=== PATIENT | male | born 1940 | race Caucasian/White ===

== ENCOUNTER → 2016-05-17 | Outpatient (CLI) | payer MEDICARE, BC ==
[~2016-05-17] MED LIST: ALPHAGAN P 5 ML5 M1 OU; AZOPT 10 ML10 ML OU; BACTRIM DS 8001 TA1 PO; CARBIDOPA/LEVOD1 TE1 PO; CINNAMON500 MG PO; DIABETA 5MG5 MG/TAB PO; DIABETA5 MG PO; DUO-KAPS1 CAP PO; EFFEXOR XR75 M2 PO; FISH OIL500 MG PO; LEVITRA; LEVOTHROID0.125 MG PO; LEVOTHYROXIN0.137 MG PO; MEN UNDER 50 M1 EACH PO; METFORMIN1000 MG PO; PRAVACHOL 40MG40 MG PO; ST. JOSEPH81 M2 PO; TRULICITY1.5 MG/0.5 SC; XALATAN EYE DROPS OU; ZOCOR10 MG PO; anti depressant
== END ==
LOC: LAB 19:20
DX: E11.9 Type 2 diabetes mellitus without complications (principal)

== ENCOUNTER 2016-05-18 08:56 | Emergency (ER) | payer MEDICARE, BC ==
[~2016-05-18 08:56] MED LIST changes: -ALPHAGAN P 5 ML5 M1 OU; -CARBIDOPA/LEVOD1 TE1 PO; -DIABETA 5MG5 MG/TAB PO; -EFFEXOR XR75 M2 PO; -LEVOTHYROXIN0.137 MG PO; -MEN UNDER 50 M1 EACH PO; -PRAVACHOL 40MG40 MG PO; -TRULICITY1.5 MG/0.5 SC
[2016-05-18] MEDS ORDERED: MEN UNDER 50 M1 EACH PO (09:09)
[2016-05-18] MEDS ORDERED: EFFEXOR XR75 M2 PO (09:09)
[2016-05-18] MEDS ORDERED: PRAVACHOL 40MG40 MG PO (09:10)
[2016-05-18] MEDS ORDERED: ALPHAGAN P 5 ML5 M1 OU (09:11)
[2016-05-18] MEDS ORDERED: DIABETA 5MG5 MG/TAB PO (09:12)
[2016-05-18] MEDS ORDERED: LEVOTHYROXIN0.137 MG PO (09:13)
[2016-05-18] MEDS ORDERED: TRULICITY1.5 MG/0.5 SC (09:13)
[2016-05-18] MEDS ORDERED: CARBIDOPA/LEVOD1 TE1 PO (09:14)
== END 2016-05-18 09:58 | disposition home or self-care (01) ==
LOC: ED 08:56
DX: D72.829 Elevated white blood cell count, unspecified (principal); R73.9 Hyperglycemia, unspecified

== ENCOUNTER 2016-05-27 12:56 | Outpatient (RCR) | payer MEDICARE, BC ==
[2016-05-18 09:56] VITALS: BP 137/83
[~2016-05-27 12:56] MED LIST changes: +ALPHAGAN P 5 ML5 M1 OU; +CARBIDOPA/LEVOD1 TE1 PO; +DIABETA 5MG5 MG/TAB PO; +EFFEXOR XR75 M2 PO; +LEVOTHYROXIN0.137 MG PO; +MEN UNDER 50 M1 EACH PO; +PRAVACHOL 40MG40 MG PO; +TRULICITY1.5 MG/0.5 SC
== END 2016-06-21 08:32 | disposition home or self-care (01) ==
LOC: PT 12:56
DX: S46.011D Strain of muscle(s) and tendon(s) of the rotator cuff of right shoulder, subsequent encounter (principal); W18.09XD Striking against other object with subsequent fall, subsequent encounter

== ENCOUNTER 2018-02-28 09:03 | Emergency (ER) | payer MEDICARE, BC ==
[~2018-02-28] VITALS: Ht 175.3 cm; Wt 100.0 kg
[2018-02-28 10:21] VITALS: BP 131/86
== END 2018-02-28 10:21 | disposition home or self-care (01) ==
LOC: ED 09:03
DX: S40.012A Contusion of left shoulder, initial encounter (principal); W01.198A Fall on same level from slipping, tripping and stumbling with subsequent striking against other object, initial encounter; Y93.K9 Activity, other involving animal care; Y92.008 Other place in unspecified non-institutional (private) residence as the place of occurrence of the external cause; Z79.899 Other long term (current) drug therapy; Z79.84 Long term (current) use of oral hypoglycemic drugs; E11.9 Type 2 diabetes mellitus without complications; G20 Parkinson's disease; E78.5 Hyperlipidemia, unspecified

== ENCOUNTER 2021-01-01 15:27 | Emergency (ER) | payer MEDICARE, BC ==
[~2021-01-01 15:27] MED LIST changes: +MECLIZINE PO
[2021-01-01 15:48] LABS: BASO # 0.05 K/mm3 (0.02-0.10); EOS # 0.14 K/mm3 (0.04-0.40); EOS % 1.5 % (0.0-4.0); HEMATOCRIT 47.3 % (42.0-52.0); HEMOGLOBIN 15.1 g/dL (13.5-18.0); LYMPH# 2.09 K/mm3 (1.50-4.00); MEAN CELL VOLUME 87 fl (78-100); MEAN CORPUSCULAR HEMOGLOBIN 28 pg (27-31); MEAN CORPUSCULAR HGB CONC 32 g/dL (33-37); MEAN PLATELET VOLUME 9.5 fl (7.4-10.4); MONO # 0.89 K/mm3 (0.20-0.80); NEU # 5.98 K/mm3 (1.40-6.50); PLATELET COUNT 203 K/mm3 (130-400); RED BLOOD COUNT 5.42 M/mm3 (4.20-5.60); RED CELL DISTRIBUTION WIDTH 12.8 % (11.5-14.5); WHITE BLOOD COUNT 9.2 K/mm3 (4.8-10.8)
[2021-01-01 16:03] LABS: ALBUMIN 4.1 g/dL (3.4-4.8); SODIUM 140 mmol/L (136-145)
[2021-01-01 16:04] LABS: CALCIUM 10.4 mg/dL (8.3-10.5)
[2021-01-01 16:05] LABS: GLUCOSE 123 mg/dL (75-110)
[2021-01-01 16:06] LABS: TOTAL PROTEIN 7.2 g/dL (6.2-8.1)
[2021-01-01 16:07] LABS: CARBON DIOXIDE 27 mmol/L (23-31); TOTAL BILIRUBIN 0.3 mg/dL (0.2-1.2)
[2021-01-01 16:11] LABS: AST-SGOT 14 U/L (5-34)
[2021-01-01 16:12] LABS: ALT/SGPT 7 U/L (0-55); LIPASE 291 U/L (8-78)
[2021-01-01 16:35] LABS: TROPONIN-I < 0.03 ng/mL (<0.030)
[2021-01-01 17:04] LABS: PARTIAL THROMBOPLASTIN TIME 22.2 SECONDS (21.0-32.0); PROTHROMBIN TIME 10.1 SECONDS (9.0-12.0)
[2021-01-01 20:01] VITALS: BP 153/91
== END 2021-01-01 20:01 | disposition home or self-care (01) ==
LOC: ED 15:27
PROVIDERS: Nurse Practitioner
DX: R07.9 Chest pain, unspecified (principal); R74.8 Abnormal levels of other serum enzymes; G20 Parkinson's disease; E11.9 Type 2 diabetes mellitus without complications; E07.9 Disorder of thyroid, unspecified; Z20.822 Contact with and (suspected) exposure to COVID-19; Z79.84 Long term (current) use of oral hypoglycemic drugs; Z79.890 Hormone replacement therapy; Z79.899 Other long term (current) drug therapy

== ENCOUNTER → 2021-10-05 | Outpatient (CLI) | payer MEDICARE, BC | LOC: LAB 08:29 | DX: Z20.822 Contact with and (suspected) exposure to COVID-19 (principal) ==

== ENCOUNTER → 2022-04-20 | Outpatient (CLI) | payer MEDICARE, BC ==
[2022-04-20 11:12] LABS: BASO # 0.03 K/mm3 (0.02-0.10); EOS # 0.32 K/mm3 (0.04-0.40); EOS % 3.2 % (0.0-4.0); HEMATOCRIT 45.2 % (42.0-52.0); HEMOGLOBIN 14.3 g/dL (13.5-18.0); LYMPH# 2.14 K/mm3 (1.50-4.00); MEAN CELL VOLUME 89 fl (78-100); MEAN CORPUSCULAR HEMOGLOBIN 28 pg (27-31); MEAN CORPUSCULAR HGB CONC 32 g/dL (33-37); MEAN PLATELET VOLUME 9.7 fl (7.4-10.4); MONO # 1.01 K/mm3 (0.20-0.80); NEU # 6.34 K/mm3 (1.40-6.50); PLATELET COUNT 212 K/mm3 (130-400); RED CELL DISTRIBUTION WIDTH 14.4 % (11.5-14.5); WHITE BLOOD COUNT 9.9 K/mm3 (4.8-10.8)
[2022-04-20 11:21] LABS: ALBUMIN 4.1 g/dL (3.4-4.8); POTASSIUM 4.5 mmol/L (3.5-5.1)
[2022-04-20 11:24] LABS: TOTAL PROTEIN 6.6 g/dL (6.2-8.1)
[2022-04-20 11:25] LABS: TOTAL BILIRUBIN 0.4 mg/dL (0.2-1.2)
== END ==
LOC: LAB 10:34
PROVIDERS: Physician Assistant
DX: R05.9 Cough, unspecified (principal); R52 Pain, unspecified; Z20.822 Contact with and (suspected) exposure to COVID-19

== ENCOUNTER 2023-01-08 14:17 | Outpatient (RCR) | payer MEDICARE, BC ==
[~2023-01-08 14:17] MED LIST changes: +DEPO-TESTOS200 MG/M1 IM; +FLOMAX0.4 MG PO; +GALANTAMINE HBR8 MG PO; +MEMANTINE HCL10 MG PO; +METOPROLOL SUCC25 M1 PO; +PRAVASTATIN SOD10 MG PO; +PRILOSEC 20MG20 MG; +PROAIR HFA0.09 MG/AC IH; +VENLAFAXINE H37.5 M4 PO
== END 2023-02-06 | disposition home or self-care (01) ==
LOC: PT
DX: R27.0 Ataxia, unspecified (principal)

== ENCOUNTER 2023-02-12 08:00 | Outpatient (RCR) | payer MEDICARE, BC | END 2023-03-09 | disposition home or self-care (01) | LOC: PT | DX: R27.0 Ataxia, unspecified (principal) ==

== ENCOUNTER 2023-03-11 08:00 | Outpatient (RCR) | payer MEDICARE, BC | END 2023-04-09 | disposition home or self-care (01) | LOC: PT | DX: R27.0 Ataxia, unspecified (principal) ==

== ENCOUNTER 2023-04-10 08:00 | Outpatient (RCR) | payer MEDICARE, BC | END 2023-05-08 13:41 | disposition home or self-care (01) | LOC: PT 08:00 | DX: R27.0 Ataxia, unspecified (principal) ==

== ENCOUNTER 2023-06-21 12:12 | Emergency (ER) | payer MEDICARE, BC ==
[~2023-06-21] VITALS: Ht 177.8 cm; Wt 79.9 kg
[2023-06-21] MEDS ORDERED: PROTONIX20 M1 PO (12:22)
[2023-06-21] MEDS ORDERED: CARBIDOPA/LEVOD1 TE1 PO (12:26)
[2023-06-21 12:46] LABS: BASO # 0.02 K/mm3 (0.02-0.10); EOS # 0.11 K/mm3 (0.04-0.40); EOS % 1.1 % (0.0-4.0); HEMATOCRIT 45.4 % (42.0-52.0); HEMOGLOBIN 14.4 g/dL (13.5-18.0); LYMPH# 1.91 K/mm3 (1.50-4.00); MEAN CELL VOLUME 88 fl (78-100); MEAN CORPUSCULAR HEMOGLOBIN 28 pg (27-31); MEAN CORPUSCULAR HGB CONC 32 g/dL (33-37); MEAN PLATELET VOLUME 9.8 fl (7.4-10.4); MONO # 0.93 K/mm3 (0.20-0.80); NEU # 6.83 K/mm3 (1.40-6.50); PLATELET COUNT 183 K/mm3 (130-400); RED BLOOD COUNT 5.17 M/mm3 (4.20-5.60); RED CELL DISTRIBUTION WIDTH 13.3 % (11.5-14.5); WHITE BLOOD COUNT 9.8 K/mm3 (4.8-10.8)
[2023-06-21 12:53] LABS: ALBUMIN 4.2 g/dL (3.4-4.8); SODIUM 140 mmol/L (136-145)
[2023-06-21] MEDS ORDERED: VITAMIN C500 M6 PO (12:53)
[2023-06-21 12:54] LABS: CALCIUM 10.6 mg/dL (8.3-10.5)
[2023-06-21] MEDS ORDERED: IRON240 MG PO (12:54)
[2023-06-21 12:56] LABS: GLUCOSE 205 mg/dL (75-110); TOTAL PROTEIN 6.7 g/dL (6.2-8.1)
[2023-06-21 12:57] LABS: CARBON DIOXIDE 25 mmol/L (23-31); TOTAL BILIRUBIN 0.3 mg/dL (0.2-1.2)
[2023-06-21] MEDS ORDERED: NS 1,000 ML IV SCH ×2 (13:00→15:30)
[2023-06-21 13:01] LABS: AST-SGOT 14 U/L (5-34)
[2023-06-21 13:02] LABS: ALT/SGPT < 6 U/L (0-55)
[2023-06-21 13:10] LABS: TROPONIN-I < 0.030 ng/mL (0.00-0.033)
[2023-06-21 13:53] LABS: URINE APPEARANCE CLEAR (CLEAR); URINE BILIRUBIN NEGATIVE (NEGATIVE); URINE BLOOD NEGATIVE (NEGATIVE); URINE COLOR YELLOW (YELLOW); URINE GLUCOSE NEGATIVE (NEGATIVE); URINE KETONE TR (NEGATIVE); URINE NITRATE NEGATIVE (NEGATIVE); URINE PROTEIN(semi-quant) 2+ (NEGATIVE)
[2023-06-21 13:54] LABS: URINE LEUKOCYTE ESTERASE NEGATIVE (NEGATIVE); URINE MUCUS PRESENT (NOT PRESENT)
[2023-06-21 16:40] VITALS: BP 142/86
== END 2023-06-21 16:42 | disposition home or self-care (01) ==
LOC: ED 12:12
PROVIDERS: Family Medicine
DX: I95.1 Orthostatic hypotension (principal); E86.9 Volume depletion, unspecified
CPT/HCPCS: J7030

== ENCOUNTER 2023-11-25 10:45 | Outpatient (RCR) | payer MEDICARE, BC ==
[~2023-11-25 10:45] MED LIST changes: +IRON240 MG PO; +PROTONIX20 M1 PO; +VITAMIN C500 M6 PO
== END 2023-12-08 | disposition home or self-care (01) ==
LOC: PT
DX: G20.A1 Parkinson's disease without dyskinesia, without mention of fluctuations (principal)

== ENCOUNTER 2023-12-12 08:20 | Outpatient (RCR) | payer MEDICARE, BC | END 2024-01-08 | disposition home or self-care (01) | LOC: PT | DX: G20.A1 Parkinson's disease without dyskinesia, without mention of fluctuations (principal); M25.511 Pain in right shoulder ==

== ENCOUNTER 2024-03-21 06:13 | Inpatient (IN) | payer MEDICARE, BC ==
[~2024-03-21] VITALS: Ht 177.8 cm; Wt 78.0 kg
[~2024-03-21 06:13] MED LIST changes: +EFFEXOR XR150 M1 PO; +FEOSOL325 MG PO; +NIZORAL A-D125 ML TP; +ROPINIROLE HYDRO2 MG PO
[2024-03-21] MEDS ORDERED: Insulin Lispro (HumaLOG) SQ SCH (08:00)
[2024-03-21 08:39] VITALS: BP 99/59
[2024-03-21] MEDS ORDERED: Memantine 5 MG TAB PO SCH (09:00)
[2024-03-21] MEDS ORDERED: rOPINIRole 1 MG TABLET PO SCH (09:00)
[2024-03-21] MEDS ORDERED: Venlafaxine XR 37.5 MG CAP PO SCH (09:00)
--- NOTE | 2024-03-21 09:45 | NUR ---
MEDICATION METOPROLOL NOT GIVEN 1. PT HAS ORTHOSTATIC HYPOTENSION 2. THIS XL TABLET IS CONTRAINDICATED TO SPLITTING.
[2024-03-21 10:45] VITALS: BP 107/62
--- NOTE | 2024-03-21 11:49 | NUR ---
NOTIFIED DR. BROWN NURSE RICARDO MORTENSEN RN OF NEED FOR CONSULT TOMORROW 03/22/24.
--- NOTE | 2024-03-21 11:54 | NUR ---
SURINDER WOULD LIKE T0 BE NOTIFED OF TIMING OF CONSULTATION TOMORROW EITHER TO BE IN PERSON FOR THE CONSULTATION OR ON THE PHONE. UPDATED RICARDO BRITTANIE MORTENSEN OF THIS REQUEST.
[2024-03-21] MEDS ORDERED: LEVOTHYROXIN0.075 MG PO (11:59)
[2024-03-21] MEDS ORDERED: ZYRTEC10 M3 PO (12:00)
--- NOTE | 2024-03-21 12:09 | NUR ---
BROUGHT BILATERAL HEARING AIDS AND UPPER/LOWER DENTURES AT BEDSIDE.
--- NOTE | 2024-03-21 12:15 | NUR ---
PATIENTS REPORTS PATIENT HAD A DOUBLE DOSE OF SINEMET AND HAD MULTIPLE BOUTS OF EMESIS. PIA ESCOBAR UPDATED.
--- NOTE | 2024-03-21 13:21 | NUR ---
REPORT GIVEN TO BRITTANIE MORRISON.
[2024-03-21 14:00] VITALS: BP 93/48
[2024-03-21] MEDS ORDERED: NS 1,000 ML IV SCH (14:45)
[2024-03-21 19:00] VITALS: BP 109/64
--- NOTE | 2024-03-21 19:00 | NUR ---
Report received from Airam GU.
--- NOTE | 2024-03-21 20:00 | NUR ---
Patients family in visiting.
[2024-03-21] MEDS ORDERED: CARBIDOPA PO SCH (21:00)
[2024-03-21] MEDS ORDERED: LEVODOPA PO SCH (21:00)
--- NOTE | 2024-03-21 21:00 | NUR ---
PATIENTS O2 SAT 89-90% RA. O2 APPLIED 2 LPNC.
--- NOTE | 2024-03-22 | NUR ---
Patient sitting up on side of bed and reminded of time. Rests back in bed. Repositioned up in bed 2 assist. Denies pain. Bed alarm on. Patient alert to self only. Pleasantly confused.
[2024-03-22 03:38] VITALS: BP 119/74
--- NOTE | 2024-03-22 04:00 | NUR ---
Patient restless in bed and sitting up. Asked patient in several ways if needed the bathroom, he stated maybe. Assisted up 1-2 CGA to the bathroom with verbal cueing and walker and voids 650mls dk martín to tea colored urine. Continent. Assisted back to bed.
--- NOTE | 2024-03-22 04:30 | NUR ---
Patient rests soundly with eyes closed.
--- NOTE | 2024-03-22 04:58 | NUR ---
Patient resting with eyes closed. As slept off and on through the night.
[2024-03-22] MEDS ORDERED: cefTRIAXone 1 G in Water For Injection,Sterile 10 ML IV SCH (07:00)
[2024-03-22 07:30] VITALS: BP 131/71
[2024-03-22 09:15] LABS: HEMATOCRIT 33.7 % (42.0-52.0); HEMOGLOBIN 11.2 g/dL (13.5-18.0); MEAN CELL VOLUME 88 fl (78-100); MEAN CORPUSCULAR HEMOGLOBIN 29 pg (27-31); MEAN CORPUSCULAR HGB CONC 33 g/dL (33-37); MEAN PLATELET VOLUME 9.9 fl (7.4-10.4); PLATELET COUNT 138 K/mm3 (130-400); RED BLOOD COUNT 3.83 M/mm3 (4.20-5.60); RED CELL DISTRIBUTION WIDTH 13.1 % (11.5-14.5); WHITE BLOOD COUNT 5.9 K/mm3 (4.8-10.8)
[2024-03-22 09:16] LABS: ALBUMIN 3.4 g/dL (3.4-4.8)
[2024-03-22 09:18] LABS: CALCIUM 9.3 mg/dL (8.3-10.5)
[2024-03-22 09:19] LABS: TOTAL PROTEIN 5.9 g/dL (6.2-8.1)
[2024-03-22 09:21] LABS: TOTAL BILIRUBIN 0.8 mg/dL (0.2-1.2)
[2024-03-22 09:32] LABS: LYMPHOCYTE 6 % (20-51); MONOCYTE 8 % (3-10); NEUTROPHILS 85 % (42-75)
--- NOTE | 2024-03-22 09:46 | NUR ---
SPOKE TO PT PHARMACY WHO CONFIRMED PT IS TAKING BOTH 150MG AND 37.5MG EFFEXOR.
--- NOTE | 2024-03-22 10:43 | NUR ---
PT ALERT AND ORIENTED AT THIS TIME, PT REPORTS NO PAIN. PT ASSESSED AND MEDICATIONS DELIVERED WITHOUT COMPLICATION. PT IV CONTINUALLY REPORTING DISTAL OCCLUSION, SUDHIR GU CHANGED IV SITE TO RIGHT FOREARM. PT ASSESSED AND MEDICATIONS DELIVERED WITHOUT COMPLICATION. PT RESTING IN BED WITH CALL LIGHT IN REACH, PT STILL ON CLEAR LIQUID DIETS. NO FURHTER NEEDS EXPRESSED AT THIS TIME.
[2024-03-22 11:05] VITALS: BP 159/89
--- NOTE | 2024-03-22 12:46 | NUR ---
DR DE LA ROSA SAW PT AND PT THIS MORNING, PROVIDER STATES NO SURGICAL INTERVENTION AT THIS TIME
[2024-03-22 15:21] VITALS: BP 132/74
--- NOTE | 2024-03-22 15:24 | NUR ---
PT DIET ADVANCED TO BLAND, PT NOTIFIED
[2024-03-22 19:00] VITALS: BP 115/63
[2024-03-22 22:56] VITALS: BP 135/71
[2024-03-23 02:35] VITALS: BP 146/70
[2024-03-23 07:00] VITALS: BP 164/88
--- NOTE | 2024-03-23 07:55 | NUR ---
THIS RN TO HAVE TO ANSWER MULTIPLE BED/CHAIR ALARMS GOING OFF FOR PT. REORIENTATED PT AND EXPLAINED TO HIM THAT WE WOULD LIKE TO HAVE A STAFF MEMBER WITH HIM WHILE HE'S UP FOR HIS SAFETY.
--- NOTE | 2024-03-23 08:06 | NUR ---
Pt oriented to person only. Confused conversation. Attempt to reorient without success. Pt impulsive, setting off bed and chair alarm getting up without assist. BRITTANIE Donis applies gait belt, assists pt to ambulate with walker in halls. Pt states that he is looking for his . Pt returns to room, sitting in recliner. Breakfast tray delivered and set up per pt preference. Chair locked, alarm set, call light within reach.
--- NOTE | 2024-03-23 11:08 | NUR ---
Ernesto and his . They would like Home Health. CMS compare given. They chose [facility]. Gave pvt caregivers information. Gave [facility] Information.
[2024-03-23 11:41] VITALS: BP 145/72
[2024-03-23 15:37] VITALS: BP 152/83
[2024-03-23] MEDS ORDERED: LORazepam 0.5 MG TABLET PO PRN ×2 (17:00)
--- NOTE | 2024-03-23 18:00 | NUR ---
Pt upset, saying that we are holding him against his will, "keeping me prisoner." Attempt to reorient to the plan to recheck labs in AM, make sure that pt is eating and drinking well and tolerates PO Abx, he will go home tomorrow. Pt acknowledges information each time he is told but as soon as RN leaves the room, he gets up without calling, sets off chair alarm and comes walking out into the booth. At one point he walked across the booth attempting to go into another pt room. Pt refuses dinner tray. Was able to appease him with milk and cookies. Pt also requests room phone and phone book. Calls friend and talks briefly. Immediately getting up once call is done. Staff member called in to sit in room to help keep pt calm. Pt is given PO Ativan to help with agitation.
[2024-03-23] MEDS ORDERED: LORazepam 0.5 MG TABLET PO ONE (18:15)
[2024-03-23 19:00] VITALS: BP 173/80
[2024-03-23] MEDS ORDERED: Ciprofloxacin 250 MG TAB PO SCH (21:00)
[2024-03-23 23:13] VITALS: BP 135/77
[2024-03-24] MEDS ORDERED: OLANZapine 5 MG TAB PO ONE (01:15)
--- NOTE | 2024-03-24 02:14 | NUR ---
PT HAS BEEN IMPULSIVE, UNABLE TO REDIRECT VERBALLY ABUSING STAFF, THIS RN GAVE PRN ATIVAN 0.25MG PER MAR AT AROUND 2129, WITH NO EFFECTIVENESS. THIS RN CALLED PROVIDER DARRICK FOR ADVISE AND AN ADITIONAL DOSE OF ATIVAN 0.25MG WERE GIVEN PER INSTRUCTIONS. PT CONTINUED TO BE IMPULSIVE GETTING OUT OF BED. PT IS VERY UNSTEDY ON HIS FEET, THIS RN CALLED PROVIDER DARRICK ONCE MORE. PROVIDER ORDERED A DOSE OF ZYPREXA 5MG, AND WAS GIVEN PER MAY. IT HAS BEEN AROUND AN HOUR SINCE MEDICATION WAS GIVEN AND THERE HAS BEEN NO IMPRUVEMENT IN IMPULSIVITY. PT BECOME VERBALLY AGRESIVE [facility] STAFF WHEN REDIRECTION IS GIVEN. THIS RN IS SITTING OUTSIDE PT ROOM FOR [facility].
--- NOTE | 2024-03-24 02:48 | NUR ---
pt activated his bed alarm when this rn went in to check on him pt had pulled out his iv on the lac, pt stated " there, now you have somthing to do". this rn put presure at insertion site to stop the bleeding, with the help of the staff we did a total bed change, and put pt back in bed alarmed. pt has a bruise in left wrist from a previous iv pt rippet out. this rn called provider Shanell, and got orders to leave IV out as pt is supposed to discharge during the day. provider gave an additional order of lorazepam 1 mg po once if necesary.
[2024-03-24 03:10] VITALS: BP 167/88
[2024-03-24] MEDS ORDERED: LORazepam 0.5 MG TABLET PO ONE (03:30)
--- NOTE | 2024-03-24 04:03 | NUR ---
1 mg ativan given as per providers orders, agitation and impulsivity has not gotten better, 30 mins post medicating pt. will continue to monitor.
[2024-03-24] MEDS ORDERED: traZODone 50 MG TAB PO ONE (04:45)
--- NOTE | 2024-03-24 04:51 | NUR ---
DOSE OF 1MG ATIVAN WAS NOT EFFECTIVE IN HELPING WITH THE AGITATION AND INPULSIVITY. THIS RN CALLED PROVIDER DARRICK AND RECEIVED AN ORDERFOR TRAZADONE 25MG, AND WAS GIVEN PER ORDERS. WILL CONTNIUE TO MONITOR EFFECTIVENESS OF MEDICATIONS.
--- NOTE | 2024-03-24 05:06 | NUR ---
THIS RN SAT OUTSIDE PTS ROOM DUE TO THE PT REPEATEDLY TRYING TO GET UP WITHOUT ASSISTANCE AND PT YELLING AT BRITTANIE WANG. 0304 PT UP TO BATHROOM AND TRYING TO WALK AROUND ROOM 0318 PT ATTEMPTING TO GET OUT OF BED 0321 PT STANDING BY THE TIME THIS RN WALKED INTO ROOM. PT STUMBLED OVER HIS FEET AND FELL BACK INTO THE BED. 0328 PT ATTEMPTING TO GET OUT OF BED 0331 PT ATTEMPTING TO GET OUT OF BED. THIS RN TRYED TO REDIRECT PT. 0340 PT ATTEMPTING TO GET OUT OF BED. 0348 PT UP WITHOUT CALLING TO BATHROOM. PT WALKING TOO FAST AND STUMBLED OVER HIS FEET FALLING BACK INTO TOILET SEAT. 0355 PT ATTEMPTING TO GET OUT OF BED, VERY AGGITATED AND WANTS TO LEAVE. 0410 PT ATTEMPTING TO GET OUT OF BED AGAIN. THIS RN REORIENTED PT AND SHOWED HIM THAT IT WAS DARK OUTSIDE AND IT WAS NOT TIME TO BE GETTING UP. 0418 PT ATTEMPTING TO GET OUT OF BED 0420 PT ATTEMPTING TO GET OUT OF BED 0435 PT UP TRYING TO LEAVE AGAIN 0439 PT UP AGAIN 0445 PT UP TO BATHROOM THIS RN MOVED TO SIT IN PTS ROOM DUE TO HIM TRYING TO GET UP CONSTANTLY AND HIGH FALL RISK TO REDIRECT AND REORIENT PT SO HE DOES NOT GET OUT OF BED WITHOUT HELP. 0516 PT COOPERATING WITH LAB DRAW.
[2024-03-24 05:29] LABS: BASO # 0.02 K/mm3 (0.02-0.10); EOS # 0.13 K/mm3 (0.04-0.40); EOS % 2.1 % (0.0-4.0); HEMATOCRIT 38.3 % (42.0-52.0); HEMOGLOBIN 12.1 g/dL (13.5-18.0); LYMPH# 0.97 K/mm3 (1.50-4.00); MEAN CELL VOLUME 92 fl (78-100); MEAN CORPUSCULAR HEMOGLOBIN 29 pg (27-31); MEAN CORPUSCULAR HGB CONC 32 g/dL (33-37); MEAN PLATELET VOLUME 10.4 fl (7.4-10.4); MONO # 0.99 K/mm3 (0.20-0.80); NEU # 3.98 K/mm3 (1.40-6.50); PLATELET COUNT 162 K/mm3 (130-400); RED BLOOD COUNT 4.16 M/mm3 (4.20-5.60); RED CELL DISTRIBUTION WIDTH 13.5 % (11.5-14.5); WHITE BLOOD COUNT 6.2 K/mm3 (4.8-10.8)
[2024-03-24 05:33] LABS: ALBUMIN 3.5 g/dL (3.4-4.8)
[2024-03-24 05:35] LABS: CALCIUM 9.3 mg/dL (8.3-10.5)
[2024-03-24 05:38] LABS: TOTAL BILIRUBIN 0.5 mg/dL (0.2-1.2)
[2024-03-24 07:00] VITALS: BP 138/89
[2024-03-24] MEDS ORDERED: CEPHALEXIN500 M1 PO (07:41)
--- NOTE | 2024-03-24 07:59 | NUR ---
[facility] [employer] [facility] support printed and provided to
[2024-03-24] MEDS ORDERED: Cephalexin 500 MG CAP PO SCH (09:00)
--- NOTE | 2024-03-24 09:19 | NUR ---
Staff sitting with pt r/t continued confusion. Assists to dress in own clothing. at bedside. BRITTANIE Lewis discusses discharge instructions with pt , [place]. [place] acknowledges understanding of d/c, meds and f/u appts. Pt belongings packed and sent with pt when escorted from facility via WC.
--- NOTE | 2024-03-24 09:22 | NUR ---
Pt's was contacted yesterday for f/u appt w/ Dr Sarabia. Appt 03/29/24 at 1:20pm here at [facility].
== END 2024-03-24 09:30 | disposition home or self-care (01) | DRG 445 ==
LOC: MED/SURG 06:13
PROVIDERS: Physician Assistant; ADMIT Family Medicine
DX: K80.20 Calculus of gallbladder without cholecystitis without obstruction (principal); N39.0 Urinary tract infection, site not specified; E86.9 Volume depletion, unspecified; E86.0 Dehydration; G20.A1 Parkinson's disease without dyskinesia, without mention of fluctuations; F02.80 Dementia in other diseases classified elsewhere, unspecified severity, without behavioral disturbance, psychotic disturbance, mood disturbance, and anxiety; E11.39 Type 2 diabetes mellitus with other diabetic ophthalmic complication; H42 Glaucoma in diseases classified elsewhere; Z79.4 Long term (current) use of insulin; K21.9 Gastro-esophageal reflux disease without esophagitis; E03.9 Hypothyroidism, unspecified; Z79.84 Long term (current) use of oral hypoglycemic drugs
CPT/HCPCS: J0696; J1650; J1815; J1836; J7030

== ENCOUNTER → 2024-03-26 | Outpatient (CLI) | payer MEDICARE, BC ==
[~2024-03-26] MED LIST changes: +CEPHALEXIN500 M1 PO; +LEVOTHYROXIN0.075 MG PO; +ZYRTEC10 M3 PO
== END ==
LOC: RAD 16:13
DX: R05.9 Cough, unspecified (principal)

== ENCOUNTER → 2024-04-15 | Outpatient (CLI) | payer MEDICARE, BC | LOC: RAD 12:13 | DX: M25.551 Pain in right hip (principal); M25.552 Pain in left hip; R29.6 Repeated falls; Z87.828 Personal history of other (healed) physical injury and trauma ==

== ENCOUNTER → 2024-06-09 | Outpatient (CLI) | payer MEDICARE, BC | LOC: RAD 13:00 → LAB 13:00 | DX: M47.816 Spondylosis without myelopathy or radiculopathy, lumbar region (principal); G20.B1 Parkinson's disease with dyskinesia, without mention of fluctuations; R29.6 Repeated falls ==